=== PATIENT | male | born 1930 | race Caucasian/White ===

== ENCOUNTER 2016-09-02 07:46 | Outpatient (CLI) | payer OTHER ==
[~2016-09-02] VITALS: Ht 175.3 cm; Wt 76.4 kg
--- NOTE | ~2016-09-02 | HEMODYNAMI ---
PATIENT:ELIEZER BISHOP MEDICAL RECORD: [id number] : 32 LOCATION:[facility] ADMISSION DATE: 09/02/16 Generatedon:09/02/201611:03 Patient name: ELIEZER BISHOP Patient #: [id number] SN: : 1930 Date of study: 09/02/2016 Page: Of Hemodynamic Procedure Report Patient Data Patient Demographics Procedure consent was obtained First Name: ELIEZER Gender: Male Last Name: DARIO : 1930 Patient #: [id number] Age: 86 year(s) Race: Unknown Additional ID: [id number] Contact details [address]: [address] [place] [address] State: [place] City: [place] Zip code: [address] Past Medical History Allergies: No known allergies Admission Admission Data Admission Date: 09/02/2016 Admission Time: 7:46 Lab Results Lab Result Date: 09/02/2016 Lab Result Time: 8:30 Biochemistry Name Units Result Min Max BUN mg/dl 30 --(----)-* 7 18 Creatinine mg/dl 1.4 --(----)*- 0.6 1.3 CBC Name Units Result Min Max Hematocrit % 33 *-(----)-- 42 54 Hemoglobin g/dl 10.7 *-(----)-- 13.5 17.5 Procedure Procedure Types Cath Procedure Diagnostic Procedure [facility] w/Coronaries PCI Procedure Coronary Stent Initial Miscellaneous Procedures Moderate Sedation up to 45 minutes Procedure Description Procedure Date Procedure Date: 09/02/2016 Procedure Start Time: 10:36 Procedure End Time: 11:02 Procedure Staff Name Function Francois Bangura MD Performing Physician Nicolette Chamberlain RT Scrub Florence Saavedra RN Nurse Mina Kimble RT Monitor Kevin Merrill RN Bulk Delivery Driver Procedure Data Cath Procedure Fluoroscopy Diagnostic fluoroscopy Total fluoroscopy Time: 5.7 time: 5.7 min min Diagnostic fluoroscopy Total fluoroscopy dose: 552 dose: 552 mGy mGy Contrast Material Contrast Material Type Amount (ml) Isovue 300 99 Entry Location Entry Primary Successful Side Size Upsize Upsize Entry Closure Succes sful Closure Location (Fr) 1 (Fr) 2 (Fr) Remarks Device Remarks Femoral Right 5 Fr 6 Fr Exoseal artery Short Estimated blood loss: 10 ml Diagnostic catheters Device Type Used For End Catheter Placement Cordis 5Fr Pigtail Procedure Catheter (MP) Cordis 5Fr JL 4.0 Procedure Catheter (MP) Cordis 5Fr 3DRC Catheter Procedure (MP) Procedure Complications No complications Procedure Medications Medication Administration Route Dosage Oxygen NC 2 l/min Lidocaine 2% added to field 20 0.9% NaCl I.V. 100 ml/hr Heparin Flush Bag added to field 2 bags (1000units/500ml NS) Versed I.V. 1 mg Fentanyl I.V. 50 mcg Heparin Bolus I.V. 4000 units Versed I.V. 1 mg Fentanyl I.V. 50 mcg Hemodynamics Rest HGB: 10.7 (g/dl) Heart Rate: 67 (bpm) Snapshots Pre Cath Intra NCS Post Cath Vital Signs Time Heart Resp SPO2 etCO2 NI1azwm NIBP (mmHg) Rhythm Pain Sedation Rate (ipm) (%) (mmHg) (mmHg) Status Level (bpm) 10:32:09 62 14 100 0 0 143/73(116) NSR 0 (11) 10(A) , No pain 10:36:29 67 16 97 0 0 149/73(121) NSR 0 (11) 10(A) , No pain 10:40:51 66 14 98 0 0 147/74(116) NSR 0 (11) 9(A) , No pain 10:45:12 68 16 98 0 0 147/76(124) NSR 0 (11) 9(A) , No pain 10:49:34 68 16 99 0 0 148/70(112) NSR 0 (11) 9(A) , No pain 10:53:54 71 15 99 0 0 146/78(115) NSR 0 (11) 9(A) , No pain 10:57:41 74 16 97 0 0 164/76(119) NSR 0 (11) 10(A) , No pain 11:02:04 76 14 97 0 0 170/89(132) NSR 0 (11) 10(A) , No pain Medications Time Medication Route Dose Verified Delivered Reason Notes Effectiveness by by 10:30:08 Oxygen NC 2 Francois Buffie used for l/min Willem Saavedra RN procedure 10:30:16 Lidocaine 2% added 20ml Francois Francois for local to vial Willem Bangura MD anesthetic field 10:30:30 0.9% NaCl I.V. 100 Francois Buffie Per physician ml/hr Willem Saavedra RN 10:30:44 Heparin Flush added 2 Francois Buffie used for Bag to bags Willem Saavedra RN procedure (1000units/500ml field NS) 10:35:53 Versed I.V. 1 mg Francois Buffie for sedation Willem Saavedra RN 10:35:59 Fentanyl I.V. 50 Francois Buffie for sedation mcg Willem Saavedra RN 10:45:35 Heparin Bolus I.V. 4000 Francois Buffie for verifi ed units Willem Saavedra RN anticoagulation with dr bangura 10:48:10 Versed I.V. 1 mg Francois Buffie for sedation Willem Saavedra RN 10:48:15 Fentanyl I.V. 50 Francois Buffie for sedation mcg Willem Saavedra RN Procedure Log Time Note 10:16:16 Kevin Merrill RN sent for patient. Start room use. 10:16:17 Time tracking: Regular hours 10:16:22 Plan of Care:Hemodynamics will remain stable., Cardiac rhythm will remain stable., Comfort level will be maintained., Respiratory function will remain adequate., Patient/ family verbilizes understanding of procedure., Procedure tolerated without complication., Recovers from procedure without complications.. 10:17:16 Patient received from Pre/Post Procedure Room to CCL 1 Alert and oriented. Tansferred to table in Supine position. 10:17:20 Warm blankets applied, and rafy hugger turned on for patient comfort. 10:17:20 Correct patient and procedure confirmed by team. 10:17:22 Signed procedure consent form obtained from patient. 10:17:24 ECG and BP/O2 sat monitors applied to patient. 10:17:33 H&P Date Dictated: 08/07/2016 Within 30 days and on chart., H&P Addendum completed by physician on day of procedure. (MUST COMPLETE FOR ALL OUTPATIENTS). 10:17:34 Pre-procedure instructions explained to patient. 10:17:35 Pre-op teaching completed and patient verbalized understanding. 10:17:37 Family in patients room. 10:17:38 Patient NPO since Midnight. 10:17:47 Patient allergic to No known allergies 10:17:51 Is the patient allergic to Iodine/contrast media? No. 10:17:53 Is patient on blood thinner?Yes 10:17:56 ACC The patient was administered the following blood thiners within the last 24 hours: ACCPlavix 10:29:32 Patient diabetic? No. 10:29:36 Previous problem with sedation/anesthesia? No ? 10:29:39 Snore? Yes 10:29:41 Sleep apnea? No 10::42 Deviated septum? No 10::43 Opens mouth fully? Yes 10:29:46 Sticks out tongue? Yes 10:29:48 Airway obstruction? No ? 10:30:04 Dentures? No ? 10:30:06 Pre procedure: right dorsailis pedis pulse 1+ Palpable, but thready & weak; easily obliterated 10:30:08 Oxygen 2 l/min NC was administered by Florence Saavedra RN; used for procedure; 10:30:16 Lidocaine 2% 20ml vial added to field was administered by Francois Bangura MD; for local anesthetic; 10:30:30 0.9% NaCl 100 ml/hr I.V. was administered by Florence Saavedra RN; Per physician; 10:30:44 Heparin Flush Bag (1000units/500ml NS) 2 bags added to field was administered by Florence Saavedra RN; used for procedure; 10:30:53 Patient pain scale 0/10 ?. 10:30:53 Vital chart was started 10:31:08 IV patent on arrival in left hand with 0.9% NaCl at [facility]. 10:31:20 Lab results completed and on chart. ::47 Lab Result : BUN 30 mg/dl ::47 Lab Result : Creatinine 1.4 mg/dl 10::47 Lab Result : Hematocrit 33 % 10::47 Lab Result : Hemoglobin 10.7 g/dl 10::54 Right groin area was prepped with chlora-prep and draped in sterile fashion 10:: Alarms reviewed by RJune N. :: Sharps counted by scrub and verified by R.N. 10:31:57 Use device set Femoral Dx 10:31:58 Tegaderm 4 x 4 opened to sterile field. 10::59 Acist Manifold opened to sterile field. 10::59 Acist Hand Control opened to sterile field. 10:32:01 Acist Syringe opened to sterile field. 10:32:01 Bag Decanter opened to sterile field. 10:32:02 Medline Cath Pack opened to sterile field. 10:32:26 Terumo 5Fr Swaledale Sheath opened to sterile field. 10:32:26 St Jori 260cm J .035 wire opened to sterile field. 10:32:28 Diagnostic Infinity 5Fr Multipack catheter opened to sterile field. 10:34:22 Baseline sample Acquired. 10:34:26 Rhythm: sinus rhythm 10:34:35 Physician arrived 10::35 --------ALL STOP TIME OUT------ 10:34:36 Final Timeout: patient, procedure, and site verified with staff and physician. All members of the team are in agreement. 10:34:38 Right groin site verified by team. 10:34:46 Physical assessment completed. ASA score P 2 - A patient with mild systemic disease as per Francois Bangura MD. 10:34:49 Sedation plan: IV Moderate Sedation Versed, Fentanyl 10:35:34 Zero performed for pressure channel P1 10:35:39 Zero performed for pressure channel P1 10:35:53 Versed 1 mg I.V. was administered by Florence Saavedra RN; for sedation; 10::59 Fentanyl 50 mcg I.V. was administered by Florence Saavedra RN; for sedation; 10:36:41 Procedure started. 10:36:41 Full Disclosure recording started 10:36:44 Local anesthetic to right femoral artery with Lidocaine 2% by Francois Bangura MD.INITIAL ACCESS ONLY 10:36:53 A 5 Fr sheath was inserted into the Right Femoral artery 10:39:56 A Cordis 5Fr Pigtail Catheter (MP) was advanced over the wire and used for Procedure. 10:41:07 LV gram done using BERNAL 10:41:11 Injector settings: Ml/sec: 10, Volume: 20, 10:41:22 EF : 60 % 10:41:33 A Cordis 5Fr JL 4.0 Catheter (MP) was advanced over the wire and used for Procedure. 10:42:16 LCA angiography performed. 10:43:10 Catheter removed. 10:43:47 A Cordis 5Fr 3DRC Catheter (MP) was advanced over the wire and used for Procedure. 10:43:49 RCA angiography performed. 10:43:51 Catheter removed. 10:45:35 Heparin Bolus 4000 units I.V. was administered by Florence Saavedra RN; for anticoagulation; verified with dr bangura 10:45:35 Sheath upsized to a 6 Fr Short. 10:45:38 Terumo 6Fr Swaledale Sheath opened to sterile field. 10:45:39 Whittaker Whisper J 300cm 0.014 guide wire opened to sterile field. 10:45:40 timeplazza BasixCompak Inflation Kit opened to sterile field. 10:45:50 Cordis 6FR XBLAD 4.0 guide catheter opened to sterile field. 10:46:39 6 Fr xblad 4 guide catheter was inserted over the wire 10:46:44 whisper wire advanced. 10:47:37 Wire advanced across lesion. 10:48:10 Versed 1 mg I.V. was administered by Florence Saavedra RN; for sedation; 10:48:15 Fentanyl 50 mcg I.V. was administered by Florence Saavedra RN; for sedation; 10:49:55 Inflation number: 1 A Mozec Rx 2.0 x 15 balloon was prepped and advanced across the Prox LAD, then inflated to 9 BHAVIK for 0:10 (min:sec). 10:50:18 Inflation number: 2 The Mozec Rx 2.0 x 15 balloon was reinflated across the Prox LAD, to 9 BHAVIK for 0:08 (min:sec). 10:50:35 Inflation number: 3 The Mozec Rx 2.0 x 15 balloon was reinflated across the Prox LAD, to 21 BHAVIK for 0:10 (min:sec). 10:51:03 Balloon removed over the wire. 10:52:48 Inflation Number: 4 A Biofreedom 3.0 x 28 stent (No Cost Implant) was prepped and advanced across the Prox LAD. The stent was deployed at 15 BHAVIK for 0:10 (min:sec). 10:53:22 Stent catheter was removed intact over wire. 10:53:23 Wire removed. 10:53:24 Guide catheter removed. 10:53:34 Cordis 6Fr Exoseal opened to sterile field. 10:53:43 Sheath removed intact; hemostasis achieved with Exoseal to the Right Femoral artery. 10:53:50 Procedure ended.(Physican Out) 10:54:16 Fluoroscopy time 05.70 minutes. 10:54:20 Fluoroscopy dose: 552 mGy 10:54:20 Flurop Dose total: 552 10:58:11 Contrast amount:Isovue 300 99ml. 10:58:49 Insertion/operative site no bleeding no hematoma. 10:59:04 Post-op/insertion site Right Femoral artery dressed using a 4 x 4 and Tegaderm. 10:59:12 Post right femoral artery:stable, soft, clean and dry 10:59:13 Post Procedure Pulses reassessed and unchanged 10:59:16 Post-procedure physical assessment completed. ASA score P 2 - A patient with mild systemic disease as per Francois Bangura MD. 10:59:20 Post procedure rhythm: unchanged. 10:59:29 Estimated blood loss: 10 ml 10:59:30 Post procedure instruction explained to patient.Patient verbalizes understanding. 10:59:32 Patient needs reinforcement of post procedure teaching. 10:59:52 Procedure type changed to Cath procedure, Diagnostic procedure, LHC, LHC w/Coronaries, PCI procedure, Coronary Stent Initial, Miscellaneous Procedures, Moderate Sedation up to 45 minutes 11:02:04 Procedure and supply charges have been captured, reviewed, submitted and are correct. 11:02:07 Procedure Complication : No complications 11:02:08 Vital chart was stopped 11:02:09 See physician's report for complete and final results. 11:02:10 Report given to Pre/Post Procedure Room. 11:02:13 Patient transfered to Pre/Post Procedure Room with Stretcher. 11:02:15 Procedure ended. 11:02:15 Full Disclosure recording stopped 11:02:18 End room use (Document Last) Intervention Summary Intervention Notes Time ActionType Lesion and Equipment Action# Pressure Duration Attributes Used 10:49:55 Inflate Prox LAD Mozec Rx 1 9 00:10 balloon 2.0 x 15 balloon 10:50:18 Reinflate Prox LAD Mozec Rx 2 9 00:08 balloon 2.0 x 15 balloon 10:50:35 Reinflate Prox LAD Mozec Rx 3 21 00:10 balloon 2.0 x 15 balloon 10:52:48 [address] stent Prox LAD Biofreedom 4 15 00:10 3.0 x 28 stent (No Cost Implant) Device Usage Item Name Manufacture Quantity Catalog Hospital Part Current Minimal Lot# / Number Charge Number Stock Stock Serial# Code Jeysonadezaina 4 3M 1 [id number] 468152 896844 5 x 4 Acist Acist 1 41620 588439 495135 764905 5 Embrace Pet Insurance Acist Hand Acist 1 60354 028835 494880 505396 5 Cortrium Systems Grafighters Acist Acist 1 43340 293406 393573 102964 20 Syringe Orgenesis Systems Grafighters Bag Microtek 1 2002S 686242 16054 617683 5 [employer] Medline Cardinal 1 [id number] 688180 52399 407008 5 Cath Pack Health Terumo 5Fr Terumo 1 [id number] 904048 816028 635393 [address] St Jori 1 [id number] 011545 595879 837312 30 260cm J .035 wire Diagnostic Cardinal 1 [id number] 577546 34262 351109 30 Infinity Health 5Fr Multipack catheter Cordis 5Fr Cardinal 1 163231 5 Pigtail Health Catheter (MP) Cordis 5Fr Cardinal 1 [id number] 5 JL 4.0 Health Catheter (MP) Cordis 5Fr Cardinal 1 257678 5 3DRC Health Catheter (MP) Terumo 6Fr Terumo 1 [id number] 782896 576089 700162 40 Swaledale Sheath Whittaker Whittaker 1 [id number] 616757 525820 370122 5 Whisper J Vascular 300cm 0.014 guide wire Merit Merit 1 [id number] 710004 594833 255665 15 Zubie Medical Inflation Kit Cordis 6FR Cardinal 1 [id number] 665590 395139 058352 3 XBLAD 4.0 Health guide catheter Mozec Rx Cardinal 1 [id number] 147820 54703 257646 5 [id number] 2.0 x 15 Health balloon Biofreedom Biosensors 1 [id number] 050559 800334 5 [id number] 3.0 x 28 [place] SA stent (No Cost Implant) Cordis 6Fr Cardinal 1 [id number] 340761 709823 862715 10 [facility] Leikr Signature Audit [place] Stage Time Signature Unsigned Intra-Procedure 09/02/2016 Mina Kimble 11:03:21 AM RT(R) Signatures Monitor : Mina Kimble RT Signature : Date : Time : [place] [id number] [facility] [place] [address]
--- NOTE | ~2016-09-02 | OP ---
PATIENT NAME: ELIEZER BISHOP MEDICAL RECORD: [id number] :32 LOCATION:[facility] ADMISSION DATE: SURGEON: IRCHARD VALERIO MD OPERATION DATE: 09/02/16 PROCEDURE: 1. Percutaneous transluminal coronary angioplasty stent left anterior descending. 2. Left heart catheterization. 3. Selective coronary angiography. 4. Left ventriculogram. INDICATION: 1. Angina. 2. Coronary artery disease. PROCEDURE IN DETAIL: After informed consent was obtained and after detailed explanation of risks, benefits, as well as alternative therapies, the patient elected to proceed with angiogram and angioplasty. The right femoral area was prepped and draped in a normal sterile fashion. The right femoral artery was cannulated via modified Seldinger technique with placement of 6-Georgian sheath. All catheters exchanged through this sheath. FINDINGS: The left ventriculogram was performed in standard 30 degree BERNAL view, reveals preserved cardiac wall motion and ejection fraction 55%. SELECTIVE CORONARY ANGIOGRAPHY: 1. Left main is with no significant angiographic disease. 2. Left anterior descending has a previously placed stent proximally with 80% in-stent restenosis. Otherwise the left anterior descending has mild to moderate irregularities. 3. The left circumflex has moderate irregularities but no discrete flow-limiting stenosis. 4. Right coronary artery is small, nondominant with no significant disease. PTCA STENT OF THE LEFT CIRCUMFLEX: The stent used is a 3.0 X 28 millimeter BioFreedom stent. The lesion was a 25 millimeter lesion in a 3.0 vessel. KB 3 flow before and after the intervention. The result was 0% residual stenosis. OVERALL IMPRESSION: Successful percutaneous transluminal coronary angioplasty stent of the left anterior descending going from 80% initial stenosis to 0% residual stenosis. RICHARD VALERIO MD CC: [id number] DICTATION DATE: 09/02/16 1400 SENIOR GROUP MANAGER: DM 09/03/16 0905 DEP CLI 09/02/16 [place] [id number] [place] [id number]
[2016-09-02] MEDS ORDERED: CARDURA4 MG PO (08:08)
[2016-09-02] MEDS ORDERED: METOPROLOL TART50 MG PO (08:09)
[2016-09-02] MEDS ORDERED: ZOCOR40 MG PO (08:09)
[2016-09-02] MEDS ORDERED: PLAVIX75 MG PO (08:09)
[2016-09-02] MEDS ORDERED: BAYER CHEWABLE81 MG PO (08:12)
[2016-09-02] MEDS ORDERED: ZYLOPRIM300 MG PO (08:12)
[2016-09-02 08:19] VITALS: BP 191/75; Ht 175.3 cm; Wt 76.4 kg
[2016-09-02 08:38] LABS: BASOPHILS 0.2 % (0-2); EOSINOPHILS 2.6 % (0-7); HEMOGLOBIN 10.7 g/dL (13.5-17.5); IMMATURE GRANULOCYTES 0.3 % (0-5); LYMPHOCYTES 12.9 % (15-50); MCH 35.1 pg (26.0-34.0); MCHC 32.4 g/dL (31.0-37.0); MCV 108.2 fL (80.0-100.0); MONOCYTES 11.4 % (2-11); NEUTROPHILS 72.6 % (40-80); PLATELET COUNT 134 10x3/uL (130-400); RBC 3.05 10x6/uL (4.20-6.10); RDW 13.3 % (11.5-14.5); WBC 9.6 10x3/uL (4.8-10.8)
[2016-09-02 09:00] LABS: CALC OSMOLALITY 285 mosm/kg (275-300); CALCIUM 9.5 mg/dL (8.5-10.1); CARBON DIOXIDE 24.6 mmol/L (21.0-32.0); CHLORIDE - SERUM 106 mmol/L (98-107); CKMB 0.7 U/L (0.0-3.6); CREATINE KINASE 52 UL (21-232); CREATININE - SERUM 1.4 mg/dL (0.6-1.3); GLUCOSE 120 mg/dL (74-106); POTASSIUM - SERUM 4.2 mmol/L (3.5-5.1); SODIUM 140 mmol/L (136-145); TROPONIN-I < 0.017 ng/mL (0.000-0.060); UREA NITROGEN 30 mg/dL (7-18); eGFR NON AFRICAN AMERICAN 51 mL/min (90-120)
--- NOTE | 2016-09-02 11:30 | NUR ---
2L NC, NO RESP DISTRESS NOTED. RIGHT GROIN 6F EXOSEAL CDI, NO BLEEDIGN OR HEMATOMA NOTED. NO C/O CHEST PAIN OR NAUSEA. VSS. INSTRUCTED TO KEEP HEAD FLAT ON PILLOW AND RIGHT LEG STRAIGHT.
--- NOTE | 2016-09-02 12:00 | NUR ---
SANDWICH TRAY AND DRINK GIVEN, NO C/O N/V. RIGHT GROIN 6F EXOSEAL CDI, NO BLEEDING OR HEMATOMA NOTED. VSS.
--- NOTE | 2016-09-02 12:56 | NUR ---
1245 DRESSING TO RIGHT GROIN IS CDI, NO BLEEDING OR HEMATOMA AT SITE, AREA IS SOFT AND NONTENDER. PEDAL PULSES PALPABLE. NORMAL SINUS RHYTHM, RATE 62. PT DENIES ANY C/O CHEST DISCOMFORT. RR EVEN AND UNLABORED. POST PROCEDURE EKG OBTAINED. PT DENIES NEEDS AT THIS TIME, CALL LIGHT IN REACH.
--- NOTE | 2016-09-02 13:15 | NUR ---
2L NC, NO RESP DISTRESS NOTED. RIGHT GROIN 6F EXOSEAL CDI, NO BLEEDING OR HEMATOMA NOTED. VSS. NO C/O AT THIS TIME. WILL CONTINUE TO MONITOR.
--- NOTE | 2016-09-02 14:15 | NUR ---
VOIDED 250CC OF CLEAR YELLOW URINE.
--- NOTE | 2016-09-02 14:30 | NUR ---
HOB ELEVATED 30 DEGREES. RIGHT GROIN 6F EXOSEAL CDI, NO BLEEDING OR HEMATOMA NOTED.
--- NOTE | 2016-09-02 14:45 | NUR ---
LEFT FA PIV D/C'D WITH CATHETER INTACT, BAND AID TO SITE. UP TO BEDSIDE TO GET DRESSED.
--- NOTE | 2016-09-02 15:05 | NUR ---
DISCHARGE INSTRUCTIONS GIVEN, VERBALIZED UNDERSTANDING. TAKEN OUT VIA WHEELCHAIR BY CATH SURVEY RESEARCH ASSOCIATE. LEFT FACILITY WITH FAMILY MEMBER AND ALL PERSONAL BELONGINGS.
== END 2016-09-02 15:05 | disposition home or self-care (01) ==
LOC: D.CATH 07:46
PROVIDERS: Internal Medicine Interventional Cardiology
DX: I25.119 Atherosclerotic heart disease of native coronary artery with unspecified angina pectoris (principal); T82.855A Stenosis of coronary artery stent, initial encounter; Z00.6 Encounter for examination for normal comparison and control in clinical research program; Z01.812 Encounter for preprocedural laboratory examination
CPT/HCPCS: 93458; C9600

== ENCOUNTER 2017-10-09 01:25 | Inpatient (IN) | payer MEDICARE ==
[~2017-10-09] VITALS: Ht 175.3 cm; Wt 77.3 kg
--- NOTE | ~2017-10-09 | HEMODYNAMI ---
PATIENT:ELIEZER BISHOP MEDICAL RECORD: [id number] : 32 LOC[address] [id number] ADMISSION DATE: 10/09/17 Generatedon:10/09/201714:20 Patient name: ELIEZER BISHOP Patient #: [id number] S SN: : 1930 Date of study: 10/09/2017 Page: Of Hemodynamic Procedure Report Patient Data Patient Demographics Procedure consent was obtained First Name: ELIEZER Gender: Male Last Name: DARIO : 1930 Patient #: [id number] Age: 87 year(s) Race: Unknown Additional ID: [id number] Contact details Address: [address] [place] [address] State: [place] City: [place] Zip code: [address] Past Medical History Allergies: No known allergies Admission Admission Data Admission Date: 10/09/2017 Admission Time: 3:52 Room #: D2129 Lab Results Lab Result Date: 10/09/2017 Lab Result Time: 0:00 Biochemistry Name Units Result Min Max BUN mg/dl 23 --(----)-* 7 18 Creatinine mg/dl 1.3 --(---*)-- 0.6 1.3 CBC Name Units Result Min Max Hemoglobin g/dl 10.7 *-(----)-- 13.5 17.5 Procedure Procedure Types Cath Procedure Diagnostic Procedure LHC LHC w/Coronaries Temporary Pacemaker Sedation Charges Moderate Sedation up to 30 minutes PCI Procedure Coronary Stent Coronary Stent Initial x2 Procedure Description Procedure Date Procedure Date: 10/09/2017 Procedure Start Time: 13:44 Procedure End Time: 14:18 Procedure Staff Name Function Francois Bangura MD Performing Physician Iris Kumar RT Monitor Mina Kimble RT Scrub Kevin Merrill RN Nurse Je Jeffrey RT Fringe Maker Procedure Data Cath Procedure Fluoroscopy Diagnostic fluoroscopy Total fluoroscopy Time: 8.6 time: 8.6 min min Diagnostic fluoroscopy Total fluoroscopy dose: 9.9 dose: 9.9 mGy mGy Contrast Material Contrast Material Type Amount (ml) Isovue 300 146 Entry Location Entry Primary Successful Side Size Upsize Upsize Entry Closure Succes sful Closure Location (Fr) 1 (Fr) 2 (Fr) Remarks Device Remarks Femoral Right 5 Fr 7 Fr Exoseal artery Short Femoral Right 6 Fr Exoseal vein Short Estimated blood loss: 10 ml Diagnostic catheters Device Type Used For End Catheter Placement MULTIPACK Pigtail 5 Fr Procedure catheter MULTIPACK JL 4.0 5Fr Procedure catheter MULTIPACK 3DRC 5Fr Procedure catheter Procedure Complications No complications Procedure Medications Medication Administration Route Dosage Oxygen etCO2 Nasal cannula 2 l/min Heparin Flush Bag added to field 2 bags (1000units/500ml NS) 0.9% NaCl I.V. 100 ml/hr Fentanyl I.V. 50 mcg Versed I.V. 1 mg Heparin Bolus I.V. 5000 units Hemodynamics Rest HGB: 10.7 (g/dl) Heart Rate: 67 (bpm) Snapshots Pre Cath Intra NCS Post Cath Vital Signs Time Heart Resp SPO2 etCO2 NIBP (mmHg) Rhythm Pain Sedation Rate (ipm) (%) (mmHg) Status Level (bpm) 13:26:44 68 16 96 0 Measuring NSR 0 (11) 10(A) , No pain 13:28:48 66 16 99 1.5 Time NSR 0 (11) 10(A) Exceeded , No pain 13:33:46 63 17 99 31.6 Measuring NSR 0 (11) 10(A) , No pain 13:34:36 63 17 100 0 153/70(127) NSR 0 (11) 10(A) , No pain 13:39:22 64 18 93 0 134/65(106) NSR 0 (11) 9(A) , No pain 13:44:03 65 17 94 40.6 135/73(108) NSR 0 (11) 9(A) , No pain 13:48:46 62 16 94 30.8 140/64(111) NSR 0 (11) 9(A) , No pain 13:53:30 62 17 94 18 132/61(112) NSR 0 (11) 9(A) , No pain 13:58:11 64 13 95 30.1 144/72(103) NSR 0 (11) 9(A) , No pain 14:02:53 67 18 96 27.8 135/57(106) NSR 0 (11) 9(A) , No pain 14:08:11 67 16 96 28.6 156/79(121) NSR 0 (11) 9(A) , No pain 14:12:56 66 17 99 24.1 155/78(128) NSR 0 (11) 9(A) , No pain 14:17:41 64 15 97 0 153/72(126) NSR 0 (11) 9(A) , No pain Medications Time Medication Route Dose Verified Delivered Reason Notes Effectiveness by by 13:21:25 Oxygen etCO2 2 Francois Wilkesy Per physician Nasal l/min Willem Merrill RN cannula 13:21:35 Heparin Flush added 2 Francois Brown used for Bag to bags Willem Merrill RN procedure (1000units/500ml field NS) 13:21:45 0.9% NaCl I.V. 100 Francois Brown Per physician ml/hr Willem Merrill RN 13:34:09 Fentanyl I.V. 50 Francois Brown for sedation mcg Willem Merrill RN 13:34:19 Versed I.V. 1 mg Francois Brown for sedation Willem Merrill RN 13:56:19 Heparin Bolus I.V. 5000 Francois Brown for units Willem Merrill RN anticoagulation Procedure Log Time Note 13:00:36 Je Jeffrey RT(R) sent for patient. Start room use. 13:09:34 Signed procedure consent form obtained from patient. 13:09:37 Time tracking: Regular hours (M-F 7:00 - 5:00) 13:09:41 Plan of Care:Hemodynamics will remain stable., Cardiac rhythm will remain stable., Comfort level will be maintained., Respiratory function will remain adequate., Patient/ family verbilizes understanding of procedure., Procedure tolerated without complication., Recovers from procedure without complications.. 13:09:56 H&P Date Dictated: 10/09/2017 Within 30 days and on chart.. 13:10:05 Patient allergic to No known allergies 13:10:32 Lab Result : BUN 23 mg/dl 13:10:32 Lab Result : Hemoglobin 10.7 g/dl 13:10:32 Lab Result : Creatinine 1.3 mg/dl 13:17:47 Patient received from Med II to CCL 1 Alert and oriented. Tansferred to table in Supine position. 13:17:48 Warm blankets applied, and rafy hugger turned on for patient comfort. 13:17:49 Correct patient and procedure confirmed by team. 13:17:50 ECG and BP/O2 sat monitors applied to patient. 13:21:25 Oxygen 2 l/min etCO2 Nasal cannula was administered by Kevin Merrill RN; Per physician; 13::35 Heparin Flush Bag (1000units/500ml NS) 2 bags added to field was administered by Kevin Merrill RN; used for procedure; 13:21:45 0.9% NaCl 100 ml/hr I.V. was administered by Kevin Merrill RN; Per physician; 13::35 Vital chart was started 13:27:17 Rhythm: sinus rhythm 13:27:19 Pre-procedure instructions explained to patient. 13:27:19 Pre-op teaching completed and patient verbalized understanding. 13:27:20 Family in patients room. 13:27:23 Patient NPO since Midnight. 13:27:25 Baseline sample Acquired. 13:27:26 Full Disclosure recording started 13:27:29 Is the patient allergic to Iodine/contrast media? No. 13:30:29 Is patient on blood thinner?Yes 13:30:35 PRE LOADED 13:30:37 Patient diabetic? No. 13:30:39 Previous problem with sedation/anesthesia? No ? 13:30:40 Snore? No 13:30:41 Sleep apnea? No 13:30:42 Deviated septum? No 13:30:44 Opens mouth fully? Yes 13:30:47 Sticks out tongue? Yes 13:30:50 Airway obstruction? No ? 13:30:52 Dentures? No ? 13:30:56 Pre procedure: right dorsailis pedis pulse 2+ Normal; easily identifiable; not easily obliterated 13:31:02 Patient pain scale 0/10 ?. 13:31:06 IV patent on arrival in right hand with 0.9% NaCl at [facility]. 13:31:09 Lab results completed and on chart. 13:31:13 Right groin area was prepped with chlora-prep and draped in sterile fashion 13:31:14 Alarms reviewed by R. N. 13:31:15 Sharps counted by scrub and verified by R.N. 13:31:20 Use device set Femoral Dx 13:31:22 ACIST Syringe (83171) opened to sterile field. 13:31:23 Bag Decanter (2002S) opened to sterile field. 13:31:24 ACIST Hand Control (77165) opened to sterile field. 13:31:25 ACIST Manifold (39062) opened to sterile field. 13:31:26 Tegaderm 4 x 4 (1626W) opened to sterile field. 13:31:28 Medline Cath Pack ([id number]) opened to sterile field. 13:31:29 DIAGNOSTIC WIRE .035 260cm J wire (467321) opened to sterile field. 13:31:31 DIAGNOSTIC Multipack 5Fr catheter set (UA6144) opened to sterile field. 13:31:32 SHEATH Prelude 5Fr 0.035 (CAT-5Y-68-035) opened to sterile field. 13:33:23 --------ALL STOP TIME OUT------ 13:33:23 Final Timeout: patient, procedure, and site verified with staff and physician. All members of the team are in agreement. 13:33:25 Right groin site verified by team. 13:33:27 Physical assessment completed. ASA score P 2 - A patient with mild systemic disease as per Francois Bangura MD. 13:33:30 Sedation plan: IV Moderate Sedation Medication:Versed, Fentanyl 13:34:09 Fentanyl 50 mcg I.V. was administered by Kevin Merrill RN; for sedation; 13:34:19 Versed 1 mg I.V. was administered by Kevin Merrill RN; for sedation; 13:44:04 Zero performed for pressure channel P1 13:44:13 Procedure started. 13:44:28 Local anesthetic to right femoral artery with Lidocaine 2% by Francois Bangura MD.INITIAL ACCESS ONLY 13:45:01 A 5 Fr sheath was inserted into the Right Femoral artery 13:45:10 A MULTIPACK Pigtail 5 Fr catheter was advanced over the wire and used for Procedure. 13:45:29 LV gram done using BERNAL 13:45:31 Injector settings: Ml/sec: 10, Volume: 20, 13:46:05 EF : 50 % 13:46:09 Catheter removed. 13:46:17 A MULTIPACK JL 4.0 5Fr catheter was advanced over the wire and used for Procedure. 13:48:11 LCA angiography performed. 13:48:12 Aortic Root visualized 13:48:20 A MULTIPACK 3DRC 5Fr catheter was advanced over the wire and used for Procedure. 13:48:41 RCA angiography performed. 13:48:42 Catheter removed. 13:48:51 SHEATH 7FR Underwood (KZR973) opened to sterile field. 13:48:58 INFLATOR Merit BasixCompak (TS3078) opened to sterile field. 13:49:01 CHOICE PT Extra Support 182cm wire ([id number]) opened to sterile field. 13:50:16 Sheath upsized to a 7 Fr Short. 13:50:33 GUIDE 7FR EBU 4.0 SH catheter ([id number]) opened to sterile field. 13:52:02 5Fr J Tip Temporary Pacing Catheter ([id number]) opened to sterile field. 13:52:26 Local anesthetic to right femoral vein with Lidocaine 2% by Francois Bangura MD.ADDITIONAL ACCESS 13:52:55 A 6 Fr Short sheath was inserted into the Right Femoral vein 13:53:11 --------Temp Pacer------- 13:53:11 Temporary pacer inserted 13:53:42 Temporary pacer turned on with the following settings: Rate 40, MA 5, Mode: Demand. 13:56:02 7 Fr EBU 4 SH guide catheter was inserted over the wire 13:56:15 CHOICE PT Extra Support 182cm wire ([id number]) opened to sterile field. 13:56:18 SHEATH 6FR Underwood (RSV996) opened to sterile field. 13:56:19 Heparin Bolus 5000 units I.V. was administered by Kevin Merrill RN; for anticoagulation; 13:56:46 CHOICE ES #1 ADVANCED ACROSS LAD 13:57:43 CHOICE ES #2 ADVANCED ACROSS CIRC 14:00:53 Inflate balloon Inflation number: 1 A EUPHORA 3.5 x 15 Balloon ([id number]) was prepped and advanced across the Prox CX, then inflated to 17 BHAVIK for 0:10 (min:sec). 14:01:10 Inflation number: 2 The EUPHORA 3.5 x 15 Balloon ([id number]) was reinflated across the Prox CX, to 19 BHAVIK for 0:10 (min:sec). 14:03:20 Place stent Inflation Number: 3 A TELMA RX 3.5 x 30 stent ([id number]) was prepped and advanced across the Prox CX. The stent was deployed at 21 BHAVIK for 0:10 (min:sec). 14:03:38 Stent catheter was removed intact over wire. 14:03:46 WIRE FROM CIRC REMOVED 14:04:58 Inflation number: 2 The EUPHORA 3.5 x 15 Balloon ([id number]) was reinflated across the LMCA, to 21 BHAVIK for 0:10 (min:sec). 14:05:03 Balloon removed over the wire. 14:08:31 Place stent Inflation Number: 1 A LUIS RX 4.0 x 18 stent ([id number]) was prepped and advanced across the LMCA. The stent was deployed at 21 BHAVIK for 0:10 (min:sec). 14:09:12 Temporary pacer turn off 14:09:13 Temporary pacer removed 14:09:18 Stent catheter was removed intact over wire. 14:09:19 Wire removed. 14:09:20 Guide catheter removed. 14:10:05 EXOSEAL 7Fr (EX700) opened to sterile field. 14:10:15 Sheath removed intact; hemostasis achieved with Exoseal to the Right Femoral artery. 14:10:27 EXOSEAL 6Fr (EX600) opened to sterile field. 14:10:37 Sheath removed intact; hemostasis achieved with Exoseal to the Right Femoral vein. 14:10:41 Procedure ended.(Physican Out) 14:16:10 Fluoroscopy time 08.60 minutes. 14:16:14 Fluoroscopy dose: 9.9 mGy 14:16:14 Flurop Dose total: 9.9 14:16:18 Contrast amount:Isovue 300 146ml. 14:16:22 Post-op/insertion site Right Femoral artery dressed using a 4 x 4 and Tegaderm. 14:16:28 Post right femoral artery:stable, soft, clean and dry 14:16:33 Post-procedure physical assessment completed. ASA score P 2 - A patient with mild systemic disease as per Francois Bangura MD. 14:16:35 Post procedure rhythm: unchanged. 14:16:37 Estimated blood loss: 10 ml 14:16:38 Post procedure instruction explained to patient.Patient verbalizes understanding. 14:16:39 Patient needs reinforcement of post procedure teaching. 14:18:14 Procedure type changed to Cath procedure, Diagnostic procedure, LHC, LHC w/Coronaries, Temporary Pacemaker, Sedation Charges, Moderate Sedation up to 30 minutes, PCI procedure, Coronary Stent, Coronary Stent Initial x2 14:18:43 Procedure and supply charges have been captured, reviewed, submitted and are correct. 14:18:44 Vital chart was stopped 14:18:45 See physician's report for complete and final results. 14:18:49 Procedure Complication : No complications 14:18:52 Report given to PCU. 14:18:54 Patient transfered to PCU with Bed. 14:18:56 Procedure ended. 14:18:56 Full Disclosure recording stopped 14:19:00 End room use (Document Last) Intervention Summary Intervention Notes Time ActionType Lesion and Equipment Used Action# Pressure Duration Attributes 14:00:53 Inflate Prox CX EUPHORA 3.5 x 1 17 00:10 balloon 15 Balloon ([id number]) 14:01:10 Reinflate Prox CX EUPHORA 3.5 x 2 19 00:10 balloon 15 Balloon ([id number]) 14:03:20 Place stent Prox CX TELMA RX 3.5 x 3 21 00:10 30 stent ([id number]) 14:04:58 Reinflate LMCA EUPHORA 3.5 x 2 21 00:10 balloon 15 Balloon ([id number]) 14:08:31 Place stent LMCA LUIS RX 4.0 1 21 00:10 x 18 stent ([id number]) Device Usage Item Name Manufacture Quantity Catalog Number Hospital Part Current Minimal Lot# / Charge Number Stock Stock Serial# Code ACIST Syringe Acist 1 53098 379205 424181 [id number] 20 (27047) [employer] Inc Bag Decanter Microtek 1 2001S 462175 14279 287190 5 () Medical Inc. ACIST Hand Acist 1 69623 421233 247746 487070 5 Control (45898) [employer] Systems Inc ACIST Manifold Acist 1 81493 047082 008408 662949 5 (92090) Medical Systems Inc Tegaderm 4 x 4 3M 1 1626W 596563 563297 793884 5 (1626W) Medline Cath Cardinal 1 [id number] 567473 26616 929332 5 Pack Health ([id number]) DIAGNOSTIC WIRE St Jori 1 687864 353327 117684 305909 30 .035 260cm J wire (754331) DIAGNOSTIC Cardinal 1 YD4127 651432 91431 479580 30 Multipack 5Fr Health catheter set (CF0046) SHEATH Prelude Merit 1 HMC-5V-27-035 992063 147402 619276 5 5Fr 0.035 Medical (LBH-8Y-32-035) MULTIPACK Cardinal 1 818924 5 Pigtail 5 Fr Health catheter MULTIPACK JL Cardinal 1 761965 5 4.0 5Fr Health catheter MULTIPACK 3DRC Cardinal 1 655410 5 5Fr catheter Health SHEATH 7FR Terumo 1 LWF125 230708 582805 119452 5 Underwood (XUY001) INFLATOR Merit Merit 1 VM3558 593576 216880 806744 15 Travel Appeal Medical (SF4940) CHOICE PT Extra [place] 2 [id number] 420234 683409 251201 5 Support 182cm Scientific wire ([id number]) GUIDE 7FR EBU Medtronic 1 [id number] 703236 680402 567838 0 4.0 SH catheter ([id number]) 5Fr J Tip Hansen 1 P38300H6 261920 27297 644280 2 Temporary Lifesciences Pacing Catheter (K77011Y3) SHEATH 6FR Terumo 1 JEF508 787812 105603 039263 40 Underwood (ZZX303) EUPHORA 3.5 x Medtronic 1 [id number] 651407 282789 933728 5 [id number] 15 Balloon (QNA7412B) TELMA RX 3.5 x Medtronic 1 [id number] 190656 6633502 692891 5 [id number] 30 stent ([id number]) LUIS RX 4.0 x Whittaker 1 [id number] 667312 9475964 177802 5 1342898 18 stent Vascular ([id number]) EXOSEAL 7Fr Cardinal 1 EX700 301628 146356 032326 5 (EX700) Health EXOSEAL 6Fr Cardinal 1 EX600 595758 077605 626310 10 (EX600) Health Signature Audit Beebe Stage Time Signature Unsigned Intra-Procedure 10/09/2017 Iris Kumar 2:20:33 PM RT(R) Signatures Monitor : Iris Kumar Signature : RT Date : Time : [address] [place] [address]
--- NOTE | ~2017-10-09 | OP ---
PATIENT NAME: ELIEZER BISHOP MEDICAL RECORD: [id number] :32 LOCATION:D.M2 D.2129 ADMISSION DATE:10/09/17 SURGEON: RICHARD VALERIO MD DATE OF OPERATION: 10/09/2017 PROCEDURES: 1. PTCA stent left main. 2. PTCA stent left circumflex. 3. Left heart catheterization. 4. Selective coronary angiography. 5. Left ventriculogram. INDICATION: Non-Q-wave myocardial infarction, angina and coronary artery disease. PROCEDURE IN DETAIL: After informed consent was obtained and after a detailed explanation of risks, benefits as well as alternative therapies, the patient elected to proceed with angiogram and angioplasty. The right femoral area was prepped and draped in normal sterile fashion. Right femoral artery was cannulated via modified Seldinger technique with placement of 7-Palauan sheath. Right femoral vein was cannulated via modified Seldinger technique with placement of 6-Palauan sheath. Temporary pacemaker was placed for the intervention. FINDINGS: The left ventriculogram was performed in a standard 30-degree BERNAL view, reveals good cardiac wall motion throughout all segments. Overall ejection fraction estimated at 55% to 60%. SELECTIVE CORONARY ANGIOGRAPHY: 1. Left main with 80% stenosis. 2. The left circumflex with 99% stenosis followed by 80% stenosis. 3. The left anterior descending has mild irregularities, but no flow-limiting stenosis. 4. Right coronary is small, nondominant. PTCA stent of the left main and left circumflex: The left circumflex was addressed with a 3.5 x 30 mm [place], the left main with a 4.0 x 18 mm Vishnu. Result was 0% residual stenosis. OVERALL IMPRESSION: Successful percutaneous transluminal coronary angioplasty stent of the left circumflex and left main going from 95% initial stenosis to 0% residual. TRANSINT:[id number] Voice Confirmation ID: [id number] DOCUMENT ID: [id number] RICHARD VALERIO MD at 1834 CC: [id number] DICTATION DATE: 10/09/17 1417 MEDICARE NURSE: 10/09/17 1515 [place] [address]
--- NOTE | ~2017-10-09 | DS ---
PATIENT:ELIEZER LOVETT :[birth year] MEDICAL RECORD: [id number] DISCHARGE SUMMARY ADMISSION DATE: 10/09/17 DISCHARGE DATE: 10/10/17 DIAGNOSES: 1. Non-Q-wave myocardial infarction. 2. Coronary artery disease. 3. Percutaneous transluminal coronary angioplasty stent of left main and left circumflex this admission. 4. Paroxysmal atrial fibrillation. 5. Hypertension. HOSPITAL COURSE: Mr. Lovett presents with a non-Q-wave myocardial infarction and atrial fibrillation with rapid ventricular response. He converted to sinus rhythm with sotalol. The sotalol was continued. He underwent cardiac catheterization revealing critical disease of the left main and left circumflex, underwent successful PTCA stent of both territories. Discharged home with the addition of Plavix as well as the sotalol to his medical regimen. He is already on a statin. Will follow up with [facility] in 1 month. TRANSINT:[id number] Voice Confirmation ID: [id number] DOCUMENT ID: [id number] RICHARD VALERIO MD at 1642 CC: [id number] DICTATION DATE: 10/10/17 1109 ASSISTANT FOREMAN: 10/10/17 1131 DIS IN 10/10/17 [facility] [address] [place] [address]
[~2017-10-09 01:25] MED LIST: BAYER CHEWABLE81 MG PO; CARDURA4 MG PO; METOPROLOL TART50 MG PO; PLAVIX75 MG PO; ZOCOR40 MG PO; ZYLOPRIM300 MG PO
[2017-10-09 01:53] LABS: BASOPHILS 0.3 % (0-2); EOSINOPHILS 3.6 % (0-7); HEMATOCRIT 32.4 % (42.0-54.0); HEMOGLOBIN 10.7 g/dL (13.5-17.5); IMMATURE GRANULOCYTES 1.2 % (0-5); LYMPHOCYTES 22.5 % (15-50); MCH 34.2 pg (26.0-34.0); MCV 103.5 fL (80.0-100.0); MONOCYTES 9.4 % (2-11); PLATELET COUNT 141 10x3/uL (130-400); RBC 3.13 10x6/uL (4.20-6.10); RDW 13.9 % (11.5-14.5); WBC 6.1 10x3/uL (4.8-10.8)
[2017-10-09 02:02] LABS: INR 1.05 (0.85-1.17); PROTIME 13.3 SECONDS (11.6-15.0)
[2017-10-09 02:06] LABS: ALBUMIN 2.8 g/dL (3.4-5.0); ALKALINE PHOSPHATASE 81 U/L (46-116); ALT (SGPT) 21 U/L (10-68); BILIRUBIN - TOTAL 0.21 mg/dL (0.2-1.3); CALC OSMOLALITY 284 mosm/kg (275-300); CALCIUM 8.9 mg/dL (8.5-10.1); CARBON DIOXIDE 27.2 mmol/L (21.0-32.0); CHLORIDE - SERUM 105 mmol/L (98-107); CREATININE - SERUM 1.3 mg/dL (0.6-1.3); GLUCOSE 126 mg/dL (74-106); POTASSIUM - SERUM 3.6 mmol/L (3.5-5.1); PROTEIN - SERUM 6.7 g/dL (6.4-8.2); SODIUM 140 mmol/L (136-145); UREA NITROGEN 23 mg/dL (7-18); eGFR NON AFRICAN AMERICAN 55 mL/min (90-120)
[2017-10-09 02:17] LABS: CREATINE KINASE 48 UL (21-232); PRO BNP 1534 pg/mL (0-450); TROPONIN-I 0.031 ng/mL (0.000-0.060)
[2017-10-09 03:22] VITALS: BP 110/65
[2017-10-09] MEDS ORDERED: GLUCOSAMINE & C1 CAP PO (05:49)
[2017-10-09 05:57] VITALS: BMI 25.1
[2017-10-09 08:26] VITALS: BP 142/75
[2017-10-09 09:26] VITALS: Ht 175.3 cm; Wt 77.3 kg
[2017-10-09 11:35] VITALS: BP 129/44
[2017-10-09 20:00] VITALS: BP 138/64
[2017-10-10] VITALS: BP 136/63
[2017-10-10 04:00] VITALS: BP 138/58
[2017-10-10 05:45] LABS: BASOPHILS 0.2 % (0-2); EOSINOPHILS 2.9 % (0-7); HEMATOCRIT 33.3 % (42.0-54.0); HEMOGLOBIN 10.9 g/dL (13.5-17.5); IMMATURE GRANULOCYTES 0.7 % (0-5); LYMPHOCYTES 13.8 % (15-50); MCH 34.5 pg (26.0-34.0); MCHC 32.7 g/dL (31.0-37.0); MCV 105.4 fL (80.0-100.0); MEAN PLATELET VOLUME 9.7 fL (7.4-10.4); MONOCYTES 9.4 % (2-11); PLATELET COUNT 150 10x3/uL (130-400); RBC 3.16 10x6/uL (4.20-6.10); RDW 14.2 % (11.5-14.5)
[2017-10-10 05:54] LABS: ANION GAP 12.6 mmol/L (8-16); CALCIUM 8.3 mg/dL (8.5-10.1); CARBON DIOXIDE 25.7 mmol/L (21.0-32.0); CREATININE - SERUM 1.4 mg/dL (0.6-1.3)
[2017-10-10 05:55] LABS: POTASSIUM - SERUM 4.3 mmol/L (3.5-5.1)
[2017-10-10 08:40] VITALS: BP 138/68
[2017-10-10 11:52] VITALS: BP 111/81
[2017-10-10] MEDS ORDERED: BETAPACE 80 MG80 MG PO (14:56)
== END 2017-10-10 15:33 | disposition home or self-care (01) | DRG 247 ==
LOC: D.ER 01:25 → D.M2 03:52 → D.EDHOLD 03:52 → D.M2 04:28 → D.SDCHOLD 10-10 00:43 → D.M2 10-10 15:33
PROVIDERS: Family Medicine; Internal Medicine Interventional Cardiology
PROC: B2111ZZ Fluoroscopy of Multiple Coronary Arteries using Low Osmolar Contrast (ICD-10-PCS; 2017-10-09)
PROC: B2151ZZ Fluoroscopy of Left Heart using Low Osmolar Contrast (ICD-10-PCS; 2017-10-09)
PROC: 027135Z Dilation of Coronary Artery, Two Arteries with Two Drug-eluting Intraluminal Devices, Percutaneous Approach (ICD-10-PCS; principal; 2017-10-09 10:00)
PROC: 4A023N7 Measurement of Cardiac Sampling and Pressure, Left Heart, Percutaneous Approach (ICD-10-PCS; 2017-10-09 10:00)
DX: I21.4 Non-ST elevation (NSTEMI) myocardial infarction (principal); I25.119 Atherosclerotic heart disease of native coronary artery with unspecified angina pectoris; I48.0 Paroxysmal atrial fibrillation; I10 Essential (primary) hypertension; Z86.73 Personal history of transient ischemic attack (TIA), and cerebral infarction without residual deficits